=== PATIENT | male | born 1995 | race African-American/Black ===

== ENCOUNTER 2018-04-29 09:28 | Emergency (ER) | payer MEDICAID ==
[~2018-04-29] VITALS: Ht 170.2 cm; Wt 78.9 kg
[2018-04-29 09:35] VITALS: BP 125/92; Ht 170.2 cm; Wt 78.9 kg
== END 2018-04-29 10:09 | disposition home or self-care (01) ==
LOC: ED 09:28
DX: M25.512 Pain in left shoulder (principal); R07.89 Other chest pain; Z88.0 Allergy status to penicillin; V43.52XA Car driver injured in collision with other type car in traffic accident, initial encounter; Y93.I9 Activity, other involving external motion; Y92.488 Other paved roadways as the place of occurrence of the external cause; Y99.8 Other external cause status
CPT/HCPCS: J1885